=== PATIENT | male | born 1940 | race Caucasian/White ===

== ENCOUNTER 2019-12-29 07:14 | Day surgery (SDC) | payer MEDICARE, BC ==
[~2019-12-29] VITALS: Ht 188 cm; Wt 119.5 kg
[2019-12-29] VITALS (10 sets, daily range): BP systolic 123–163; BP diastolic 34–71
[2019-12-29] MEDS ORDERED: normal saline 1,000 ML IV SCH (07:40)
[2019-12-29] MEDS ORDERED: diphenhydrAMINE 25mg capsule PO PRN (07:40)
[2019-12-29 08:10] LABS: BASOPHILS % (AUTO) 0.6 % (0-1); EOSINOPHILS # (AUTO) 0.2 X10'3 (0-0.9); EOSINOPHILS % (AUTO) 2.4 % (0-6); HEMATOCRIT 28.9 % (42.0-52.0); HEMOGLOBIN 9.6 g/dl (14.0-17.9); LYMPHOCYTES # (AUTO) 1.1 X10'3 (1.1-4.8); LYMPHOCYTES % (AUTO) 18.3 % (21-51); MEAN CORPUSCULAR HEMOGLOBIN 33.3 PG (27.0-31.0); MEAN CORPUSCULAR HGB CONC 33.4 g/dL (33.0-36.5); MEAN CORPUSCULAR VOLUME 99.8 FL (78-98); MONOCYTES # (AUTO) 0.5 X10'3 (0-0.9); MONOCYTES % (AUTO) 7.7 % (2-12); NEUTROPHILS # (AUTO) 4.4 X10'3 (1.8-7.7); PLATELET COUNT 222 X10'3 (140-440); RED CELL DISTRIBUTION WIDTH 14.5 % (11.5-14.5); WHITE BLOOD COUNT 6.2 X10'3 (4.5-11.0)
[2019-12-29 08:11] LABS: ALBUMIN 3.2 G/DL (3.4-5.0); ANION GAP 7 (8-16); BLOOD UREA NITROGEN 16 MG/DL (7-18); BUN/CREATININE RATIO 12.3 (5.4-32.0); CALCIUM 8.3 MG/DL (8.5-10.1); CHLORIDE 107 MMOL/L (99-107); GLUCOSE 101 MG/DL (70-104); MAGNESIUM 1.8 MG/DL (1.5-2.4); POTASSIUM 3.9 MMOL/L (3.5-5.1); SODIUM 140 MMOL/L (135-145); TOTAL CARBON DIOXIDE 26.1 MMOL/L (24-32); eGFR 53 ML/MIN
[2019-12-29] MEDS ORDERED: HYDR12.55 PO (08:14)
[2019-12-29] MEDS ORDERED: ZET10T PO (08:14)
[2019-12-29] MEDS ORDERED: VIT1CAPS46 PO (08:14)
[2019-12-29] MEDS ORDERED: ASPI-10 PO (08:14)
[2019-12-29] MEDS ORDERED: LISI2.5T2 PO (08:14)
[2019-12-29] MEDS ORDERED: NAPR220T67 PO (08:14)
[2019-12-29] MEDS ORDERED: iohexol 350MG/ML 100ml bottle IV ONE (08:29)
[2019-12-29] MEDS ORDERED: heparin 1,000unit/ml 10ml vial 10 ML ONE (08:29)
[2019-12-29] MEDS ORDERED: LIDOcaine 1% (10mg/ml)w/preservative injection 20ml MDV ONE (08:29)
[2019-12-29] MEDS ORDERED: midazolam 2 mg/2 ml injection ONE ×3 (08:46→09:33)
[2019-12-29] MEDS ORDERED: fentaNYL/PF 50MCG/1 ML 2ML syringe ONE ×3 (08:46→10:12)
[2019-12-29] MEDS ORDERED: hydrALAZINE 20mg/ml inj. IV ONE (10:14)
[2019-12-29] MEDS ORDERED: ondansetron/PF 4mg/2ml inj IV PRN (10:55)
[2019-12-29] MEDS ORDERED: OXAZEpam 15mg capsule PO PRN (10:55)
[2019-12-29] MEDS ORDERED: proCHLORperazine 10 MG/2 ml inj IV PRN (10:55)
[2019-12-29] MEDS ORDERED: HYDROcodone/acetaminophen 10/325mg tab PO PRN (10:55)
[2019-12-29] MEDS ORDERED: HYDROcodone/acetaminophen 5mg/325mg tablet PO PRN (10:55)
== END 2019-12-29 15:00 | disposition home or self-care (01) ==
LOC: SSTAY O 07:14
PROVIDERS: ATTEND Internal Medicine Cardiovascular Disease
DX: I70.213 Atherosclerosis of native arteries of extremities with intermittent claudication, bilateral legs (principal); I10 Essential (primary) hypertension; I25.10 Atherosclerotic heart disease of native coronary artery without angina pectoris; E78.5 Hyperlipidemia, unspecified; F10.10 Alcohol abuse, uncomplicated; Z79.899 Other long term (current) drug therapy; Z95.1 Presence of aortocoronary bypass graft; Z98.1 Arthrodesis status; Z98.890 Other specified postprocedural states; Z79.82 Long term (current) use of aspirin; Z87.891 Personal history of nicotine dependence; Z88.8 Allergy status to other drugs, medicaments and biological substances; Z72.89 Other problems related to lifestyle; Z91.018 Allergy to other foods
CPT/HCPCS: 36247; 36415; 75716; 80048; 83735; 85025; 85610; 93005; 99152; 99153; C1760; C1769; C1887; C1894; J0360; J1644; J2001; J2250; J3010; J7030; Q0163; Q9967; 75630; A4620; A6258

== ENCOUNTER 2021-07-23 12:13 | Day surgery (SDC) | payer MEDICARE, BC ==
[~2021-07-23 12:13] MED LIST: ASPI-10 PO; HYDR12.55 PO; LISI2.5T14 PO; NAPR220T67 PO; VIT1CAPS46 PO; ZET10T PO
[2021-07-23] MEDS ORDERED: ceFAZolin/D5W- 1GM premix 50 ML IV ONE (12:20)
[2021-07-23] MEDS ORDERED: vancomycin/NS 1 GM ADD-VANTAGE 250 ML IV ONE (12:20)
[2021-07-23 12:30] VITALS: BP 129/49
[2021-07-23] MEDS ORDERED: LIDOcaine 1% W/epiNEPHrine 1:100,000 20ml vial ONE (12:51)
[2021-07-23] MEDS ORDERED: midazolam 1 mg/ML 2ml injection ONE (12:51)
[2021-07-23] MEDS ORDERED: fentaNYL/PF 50MCG/1 ML 2ML syringe ONE (12:51)
[2021-07-23] MEDS ORDERED: vancomycin 1,000mg inj ONE (12:52)
[2021-07-23] MEDS ORDERED: iohexol 350 MG/ML 50ML vial IV ONE (13:51)
[2021-07-23 15:21] VITALS: BP 157/61
[2021-07-23 15:36] VITALS: BP 160/66
[2021-07-23 15:51] VITALS: BP 160/67
[2021-07-23 16:06] VITALS: BP 160/67
[2021-07-23] MEDS: normal saline 1000ml 1,000 ML IV SCH ×2 (16:31→17:04)
[2021-07-23 16:36] VITALS: BP 165/74
== END 2021-07-23 18:06 | disposition home or self-care (01) ==
LOC: ER 12:13 → PCU 3S 12:14 → ER 18:06
PROVIDERS: ATTEND Internal Medicine Cardiovascular Disease
DX: I44.2 Atrioventricular block, complete (principal); I25.10 Atherosclerotic heart disease of native coronary artery without angina pectoris; E78.5 Hyperlipidemia, unspecified; F10.10 Alcohol abuse, uncomplicated; Z79.899 Other long term (current) drug therapy; Z95.1 Presence of aortocoronary bypass graft; Z98.1 Arthrodesis status; Z98.890 Other specified postprocedural states; Z72.89 Other problems related to lifestyle; Z87.891 Personal history of nicotine dependence; Z88.8 Allergy status to other drugs, medicaments and biological substances
CPT/HCPCS: 33208; 33225; 99152; 99153; C1769; C1887; C1894; C1898; C1900; C2621; J0690; J2250; J3010; J3370; J3490; J7030; Q9967; A4565; A4620; C1882; G0378